=== PATIENT | male | born 1995 | race Two or more races ===

== ENCOUNTER 2017-02-20 21:03 | Emergency (ER) | payer BC ==
--- NOTE | 2017-02-20 21:19 | Emergency Department Record ---
History of Present Illness - General Chief Complaint: Chest Pain Stated Complaint: CHEST PAIN Source: Patient Mode of Arrival: Ambulatory Limitations: No limitations - History of Present Illness Initial Comments: 21 yo male presents with left chest wall pain since about 12:30pm today. He was at work tonight and told someone at work that it hurt. EMS was called and brought him to the ED. No cough. No shortness of breath. It hurts to touch that area and move his arm. NO pain with deep inspiration. No history of cardiac disease, vascular disease, DVT, PE. No history of congenital abnormalities. No recent injury or trauma. MD Complaint: Chest pain -: Hour(s) (9) Onset: Other Pain Location: Left chest Pain Radiation: None Severity: Mild Quality: Aching, Sharp Consistency: Intermittent Improves With: Remaining still Worsens With: Movement, Palpation Anginal Symptoms: Other (None) Treatments Prior to Arrival: Aspirin - Related Data Home Medications Medication Instructions Recorded Confirmed Last Taken Butalbital/Aspirin/Caffeine 1 tab PO ASDIR PRN 02/20/17 02/20/17 Unknown [[id number] Cap] Ibuprofen [Motrin 600Mg] 600 mg PO Q8H 02/20/17 02/20/17 Unknown Topiramate [Topiramate] 25 mg PO ASDIR PRN 02/20/17 02/20/17 Unknown Allergies Allergy/AdvReac Type Severity Reaction Status Date / Time No Known Drug Allergies Allergy Verified 02/20/17 21:07 Review of Systems Constitutional: Denies: Chills, Fever, Malaise, Weakness Eyes: Denies: Eye discharge ENT: Denies: Congestion, Ear pain, Epistaxis, Throat pain Respiratory: Denies: Cough, Dyspnea, Hemoptysis, Stridor, Wheezes Cardiovascular: Reports: Chest pain. Denies: Palpitations, Syncope Endocrine: Denies: Fatigue, Polydipsia, Polyuria Gastrointestinal: Denies: Abdominal pain, Diarrhea, Nausea, Vomiting Genitourinary: Denies: Hematuria, Urgency Musculoskeletal: Denies: Arthralgia, Back pain, Joint swelling, Myalgia, Neck pain Skin: Denies: Bruising, Change in color, Rash Neurological: Denies: Confusion, Headache Psychiatric: Denies: Anxiety Hematological/Lymphatic: Denies: Blood Clots, Easy bleeding, Easy bruising, Swollen glands Physical Exam - General General Appearance: Alert, Oriented x3, Cooperative, No acute distress Limitations: No limitations - Head Head exam: Atraumatic, Normocephalic, Normal inspection - Eye Eye exam: Normal appearance, PERRL. negative: Conjunctival injection, Periorbital swelling - ENT ENT exam: Normal exam Ear exam: Normal external inspection Nasal Exam: Normal inspection Mouth exam: Normal external inspection Teeth exam: Normal inspection Throat exam: Normal inspection - Neck Neck exam: Normal inspection, Full ROM. negative: Lymphadenopathy, Tenderness - Respiratory Respiratory exam: Normal lung sounds bilaterally, Chest wall tenderness ( Reproducible tenderness left mid anterior chest wall, no rash, very localized and reporducible). negative: Accessory muscle use, Decreased breath sounds, Prolonged expiratory, Respiratory distress, Rhonchi, Wheezes - Cardiovascular Cardiovascular Exam: Regular rate, Normal rhythm, Normal heart sounds. negative : Diastolic murmur, Systolic murmur Peripheral Pulses: 2+: Radial (R), Radial (L) - GI/Abdominal GI/Abdominal exam: Soft. negative: Tenderness - Rectal Rectal exam: Deferred - exam: Deferred - Extremities Extremities exam: Normal inspection, Full ROM, Normal capillary refill. negative: Calf tenderness, Pedal edema, Tenderness - Back Back exam: Reports: Normal inspection, Full ROM. Denies: CVA tenderness (R), CVA tenderness (L), Muscle spasm, Paraspinal tenderness, Rash noted, Tenderness - Neurological Neurological exam: Alert, Normal gait, Oriented X3 - Psychiatric Psychiatric exam: Normal affect, Normal mood - Skin Skin exam: Dry, Intact, Normal color, Warm Course - Reevaluation(s) Reevaluation #1: EKG NSR rate 89, intervals normal, axis normal, ST normal No acute changes. 02/20/17 21:26 Reevaluation #2: The Chest pain is very reproducible, normal EKG, no risk factors, no family history, no congenital heart or lung disease 02/20/17 21:26 Reevaluation #3: The labs were reviewed No acute changes of the CBC Mild elevation of the AST and ALT Troponin is negative MG is negative CXR reviewed by me. No acute changes. 02/20/17 22:09 Reevaluation #4: The results were discussed with the patient and the mother He has completely reproducible left chest wall pain on examination His EKG is negative He has had 9 hours of atypical pain with normal troponin He was instructed to review the tests with his doctor and recheck his liver test this week 02/20/17 22:38 Medical Decision Making - Lab Data Result diagrams: 02/20/17 21:20 02/20/17 21:20 Disposition Disposition: Discharge Clinical Impression: Chest wall pain Disposition: Home, Self-Care Condition: (1) Good Instructions: Chest Pain (ED) Additional Instructions: Return if you have cough, shortness of breath, fever, uncontrolled pain, or any other concerns Call your doctor to be rechecked this week and and recheck your liver test that were mildly elevated Forms: Patient Portal Access Time of Disposition: 22:41
[2017-02-20 21:29] LABS: BASO % 0.3 % (0-6); EOS % 1.6 % (0-6); HEMATOCRIT 43.2 % (42.0-52.0); HEMOGLOBIN 15.2 gm/dl (14.0-18.0); LYMPH % 37.6 % (16-45); MEAN CORPUSCULAR HEMOGLOBIN 27.1 pg (27-33); MEAN CORPUSCULAR HGB CONC 35.2 g/dl (32-36); MEAN PLATELET VOLUME 9.5 fl (7.4-10.4); MONO % 5.5 % (0-9); PLATELET COUNT 293 K/uL (130-400); RED BLOOD COUNT 5.61 M/uL (4.40-5.70); RED CELL DISTRIBUTION WIDTH 13.1 % (11.5-14.5); WHITE BLOOD COUNT W/O DIFF 10.4 K/uL (4.2-12.2)
[2017-02-20 21:41] LABS: ALB/GLOB RATIO 1.6 (1.1-1.8); ALBUMIN 4.4 gm/dL (3.5-5.0); ALKALINE PHOSPHATASE 101 U/L (38-126); ALT/SGPT 165 U/L (21-72); ANION GAP 11.5 (7-16); AST/SGOT 70 U/L (17-59); BILIRUBIN,TOTAL 0.63 mg/dL (0.2-1.3); BLOOD UREA NITROGEN 15 mg/dL (9-20); CARBON DIOXIDE 23.5 mmol/L (22-30); CREATINE PHOSPHOKINASE 186 U/L (55-170); CREATININE 1.1 mg/dL (0.66-1.25); EST GLOMERULAR FILTRATION RATE > 60 ml/min; GLUCOSE,RANDOM 92 mg/dL (70-110); TOTAL PROTEIN 7.2 gm/dL (6.3-8.2)
[2017-02-20 21:52] LABS: CKMB 2.1 ug/L (0-6)
[2017-02-20 21:53] LABS: TROPONIN I < 0.012 ng/mL (0.00-0.034)
== END 2017-02-20 23:05 | disposition home or self-care (01) ==
LOC: ER 21:03
DX: R07.89 Other chest pain (principal); R74.0 Nonspecific elevation of levels of transaminase and lactic acid dehydrogenase [LDH]
CPT/HCPCS: 71020; 80053; 82550; 82553; 84484; 85025; 93005; 93010; 99284